=== PATIENT | male | born 1965 | race African-American/Black ===

== ENCOUNTER → 2016-10-26 | Outpatient (CLI) | payer OTHER ==
--- NOTE | 2016-10-26 11:01 | REP ---
Clinical: Pain. Technique: AP, lateral, bilateral oblique and sunrise views of the left knee. Findings: Mild/moderate arthritic degenerative changes include cortical irregularity to the femoral condyles as well as increased sclerosis to the tibial plateau and mild joint space narrowing. Carpio view demonstrates subtle spurring along the margins of the patella. No acute fracture dislocation. No effusion. Impression: Mild/moderate arthritic changes. Signed by Saulo Nassar MD 10/26/2016 10:53 A
== END ==
LOC: M RAD 09:38
PROVIDERS: ATTEND Surgery
DX: M17.12 Unilateral primary osteoarthritis, left knee (principal)